=== PATIENT | male | born 1955 | race Caucasian/White ===

== ENCOUNTER → 2016-12-06 | Outpatient (CLI) | payer OTHER ==
[2016-12-06 09:02] LABS: ALT 58 U/L (21-72); AST 51 U/L (17-59); Cholesterol 240 mg/dL (<200); Creatine Kinase 346 U/L (55-170); HDL Cholesterol 56 mg/dL (40-60); Triglycerides 135 mg/dL (<150)
== END | disposition home or self-care (01) ==
LOC: LABWHC1 08:02
PROVIDERS: ATTEND Internal Medicine Interventional Cardiology
DX: I25.10 Atherosclerotic heart disease of native coronary artery without angina pectoris (principal); E78.5 Hyperlipidemia, unspecified
CPT/HCPCS: 36415; 80061; 82550; 84450; 84460

== ENCOUNTER → 2017-01-17 | Outpatient (CLI) | payer OTHER ==
[2017-01-17 08:47] LABS: ALT 40 U/L (21-72); AST 38 U/L (17-59); Cholesterol 166 mg/dL (<200); Creatine Kinase 463 U/L (55-170); HDL Cholesterol 54 mg/dL (40-60); Triglycerides 65 mg/dL (<150)
== END | disposition home or self-care (01) ==
LOC: LABWHC1 06:33
PROVIDERS: ATTEND Internal Medicine Interventional Cardiology
DX: E78.5 Hyperlipidemia, unspecified (principal); I25.10 Atherosclerotic heart disease of native coronary artery without angina pectoris
CPT/HCPCS: 36415; 80061; 82550; 84450; 84460

== ENCOUNTER → 2017-11-24 | Outpatient (CLI) | payer OTHER ==
--- NOTE | 2017-11-24 17:01 | CTL ---
EXAMINATION TYPE: CT Low Dose Lung DATE OF EXAM ORDERED: 11/24/2017 HISTORY: Long-term tobacco use. Lung cancer screening CT DLP: 80.[address] CTDI: 2.2 mGy Automated exposure control for dose reduction was used. SCREENING VISIT: Initial study COMPARISON: Outside chest x-ray November 08, 2016 TECHNIQUE: Low dose computed tomography scan was performed through the chest at 1 mm thick sections a nd reconstructed images in the coronal plane at [address] DIAGNOSTIC QUALITY: Satisfactory FINDINGS: LUNG NODULES: None. For reference 2 mm nodule anterior right upper lobe axial image 29. No suspicious greater than 5 mm n odules identified LUNGS: COPD: Minimal Fibrosis: Severity: Minimal biapical Lymph nodes: None Other findings: None BILATERAL PLEURAL SPACE: Effusion: None Calcification: Moderate calcified plaques right lung base over diaphragm raises concern for asbestosi s exposure or prior trauma. Thickening: None Pneumothorax: None HEART: Heart Size: Normal Coronary calcification: Mild to moderate. Suspect coronary stent in proximal LAD, correlate clinicall y Pericardial effusion: None Calcification left ventricular apex could reflect product of old infarct. Correlate clinically. OTHER FINDINGS: Upper abdomen: No suspicious findings seen. Bony thorax: Moderate multilevel spurring most prominent lower thoracic spine is noted Supraclavicular region: No suspicious findings. Other: No suspicious findings. IMPRESSION: No suspicious nodules identified. Stable calcified plaque right lung base. Possible old l eft ventricular infarct at apex. Correlate clinically. FOLLOW UP CT CHEST RECOMMENDATION: Annual low-dose lung screening CT CT LUNG RAD: Lung-Rad 2 Benign Appearance or Behavior
== END | disposition home or self-care (01) ==
LOC: RADCTMAIN 16:20
PROVIDERS: ATTEND Internal Medicine Critical Care Medicine
DX: Z12.2 Encounter for screening for malignant neoplasm of respiratory organs (principal); J92.9 Pleural plaque without asbestos; Z87.891 Personal history of nicotine dependence

== ENCOUNTER → 2017-12-25 | Outpatient (CLI) | payer OTHER ==
--- NOTE | 2017-12-26 07:42 | US ---
EXAMINATION TYPE: US prostate transrectal DATE OF EXAM: 12/25/2017 COMPARISON: CT abdomen and pelvis dated October 08, 2011 CLINICAL HISTORY: R97.20 Elevated PSA. This examination was performed using the transrectal probe. EXAM MEASUREMENTS: Gland Size: 5.0 x 3.1 x 4.8 cm Volume: 39.1 Predicted PSA: 4.7 Actual PSA (if available):4.8 Seminal vesicles are felt within normal limits on initial images. Prostate gland is enlarged in size with central zone calcifications. No suspicious hypoechoic nodules are identified. IMPRESSION: Prostate gland is slightly enlarged without suspicious nodule. Findings are consistent w ith BPH and correlate with lab PSA value.
== END | disposition home or self-care (01) ==
LOC: RADUSMAIN 08:55
PROVIDERS: ATTEND Family Medicine
DX: N40.0 Benign prostatic hyperplasia without lower urinary tract symptoms (principal)
CPT/HCPCS: 76872

== ENCOUNTER → 2018-01-14 | Day surgery (SDC) | payer OTHER ==
[2018-01-09 14:54] VITALS: BMI 23.7
[~2018-01-14] MED LIST: LACTATED RINGERS 1,000 ML IV SCH; LIDOCAINE 1% 20 ML VIAL (10MG/ML) FOR IV START INTRADERMA PRN; PROPOFOL 10 MG/ML 20 ML VIAL IV ONE
[2018-01-14 12:12] VITALS: TEMP 97.4
--- NOTE | 2018-01-14 12:46 | P.PCN ---
Date of Procedure: 01/14/18 Procedure(s) Performed: BRIEF HISTORY: Patient is a 62-year-old pleasant white male, scheduled for an elective colonoscopy as a part of screening for colorectal neoplasia. He has family history of colon cancer diagnosed in his dad at age 70. PROCEDURE PERFORMED: Colonoscopy with biopsy. PREOPERATIVE DIAGNOSIS: Screening for colon cancer/family history of colon cancer. IV sedation per Anesthesia. PROCEDURE: After informed consent was obtained, the patient, was brought into the endoscopy unit. IV sedation was administered by Anesthesia under continuous monitoring. Digital rectal examination was normal. Initially the Olympus CF- 160 flexible video colonoscope was then inserted in the rectum, gradually advanced into the cecum without any difficulty. Careful examination was performed as the scope was gradually being withdrawn. Ileocecal valve and the appendiceal orifice were visualized and appeared normal. Prep was excellent. Mucosa of the cecum, ascending colon, transverse colon, descending colon, sigmoid colon, and rectum appeared normal. His a 5 mm polyp noted in the sigmoid colon that was removed by biopsy. Retroflexion was performed in the rectum and no lesions were seen. The patient tolerated the procedure well. IMPRESSION: 5 mm sigmoid colon polyp status post removal by biopsy. Rest of the colon appeared normal RECOMMENDATIONS: Findings of this examination were discussed with the patient as well as his family. He was advised to follow with the biopsy doesn't have a repeat colonoscopy in 5 years
[2018-01-14 13:11] VITALS: BP 119/79; PULSE 66; RESP 18
== END ==
LOC: ORWHC2ENDO 11:12
PROVIDERS: ATTEND Internal Medicine Gastroenterology
DX: Z12.11 Encounter for screening for malignant neoplasm of colon (principal); K63.5 Polyp of colon; Z80.0 Family history of malignant neoplasm of digestive organs; I10 Essential (primary) hypertension; E78.5 Hyperlipidemia, unspecified; F17.200 Nicotine dependence, unspecified, uncomplicated; Z79.82 Long term (current) use of aspirin; Z79.899 Other long term (current) drug therapy
CPT/HCPCS: 88305; 45380; J2704

== ENCOUNTER → 2018-06-29 | Outpatient (CLI) | payer OTHER | LOC: LABWHC1 12:52 | PROVIDERS: ATTEND Urology | DX: C61 Malignant neoplasm of prostate (principal) | CPT/HCPCS: 36415; 84153 ==

== ENCOUNTER → 2018-09-08 | Outpatient (CLI) | payer OTHER ==
--- NOTE | 2018-09-09 04:39 | MR ---
EXAMINATION TYPE: MR lspine/sacrum wo con DATE OF EXAM: 09/08/2018 COMPARISON: 09/16/1711 HISTORY: Low back pain TECHNIQUE: Multiplanar, multisequence imaging of the lumbar spine is performed without IV contrast. FINDINGS: There is mild thoracolumbar levoscoliosis. There is degenerative disc space narrowing throu ghout the lumbar spine with decreased signal in the disks. There is multilevel posterior disc herniat ion and endplate spur formation. There is a mild lateral recess stenosis and relative spinal stenosis at L3-4 due to facet arthropathy and posterior disc bulging. There is no compression fracture. I see no focal bone destruction. The sacroiliac joints appear intact. The sacrum appears intact. Prostate is enlarged and measures 5.7 cm in diameter. There is no free fluid in the pelvis. Sacral segments boyle ve normal alignment. Coccyx appears intact. IMPRESSION: Multilevel spondylotic changes and mild levoscoliosis. Mild relative spinal stenosis at L3-4. No frac ture. Negative sacrum and coccyx exam. Enlarged prostate. There is moderate anterior hypertrophic spurring and lumbar disc herniation at L3-4 L1-2.
== END | disposition home or self-care (01) ==
LOC: RADMRIMAIN 18:41
PROVIDERS: ATTEND Family Medicine
DX: M48.061 Spinal stenosis, lumbar region without neurogenic claudication (principal); M51.16 Intervertebral disc disorders with radiculopathy, lumbar region; M47.817 Spondylosis without myelopathy or radiculopathy, lumbosacral region; M41.87 Other forms of scoliosis, lumbosacral region
CPT/HCPCS: 72148; 72195

== ENCOUNTER → 2018-12-25 | Outpatient (CLI) | payer OTHER | END | disposition home or self-care (01) | LOC: LABWHC1 12:20 | PROVIDERS: ATTEND Urology | DX: C61 Malignant neoplasm of prostate (principal) | CPT/HCPCS: 36415; 84153 ==

== ENCOUNTER → 2019-03-31 | Outpatient (CLI) | payer OTHER ==
--- NOTE | 2019-04-05 07:12 | MR ---
EXAMINATION TYPE: MR Prostate wo/w con DATE OF EXAM: 03/31/2019 COMPARISON: Prostate ultrasound December 25, 2017 IMAGE QUALITY: Good. INDICATION: Prostate ca PSA: 4.8 ng/ml in 2018 decreased to 3.8 on December 25, 2018. Recent Biopsy and Date: March 24, 2018 left apex medial Drifton grade 3+3, 25% of tissue measuring 5 mm in length and left lateral apex Leisa grade 3+3 approximately 10% of tissue measuring 2 mm in l ength. TECHNIQUE: Examination was performed using a 3T MRI without an endorectal coil. Multiparametric imaging was perf ormed with T2 mutliplanar sequences, axial diffusion weighted imaging and dynamic contrast enhanced i maging, utilizing 7.5 mL intravenous Gadavist gadolinium contrast. FINDINGS: There is no clinically significant cancer identified. PROSTATE VOLUME: 5.0 cm SI x 3.6 cm AP x 4.7 cm LR Vol= 41.9 cc PSA DENSITY: 5.028 ng/ml/cc Peripheral zone shows no areas of indistinct hypointensity on ADC mapping or suspicious areas of hype rintensity on diffusion-weighted images. Transitional zone shows heterogeneity and hypertrophy with circumscribed hypointense right-sided 1.6 cm nodule axial image 17. No areas of suspicious irregular hypointense masses are identified. Capsule is maintained. Seminal vesicles are felt within normal limits. No adjacent adenopathy identif ied. Bladder felt within normal limits, bladder wall thickness upper limits of normal. Visualized bowel is unremarkable. Adjacent osseous structures are intact. IMPRESSION: A focus of clinically significant cancer is not identified. Highest Assessment Category: 2 MRI Stage: T 1c N0 M0 based on review of pelvic images. False negative rates for MRI range from 5-20% depending on risk profile. Assessment Categories: 1 ? Very low (clinically significant cancer is highly unlikely to be present) 2 ? Low (clinically significant cancer is unlikely to be present) 3 ? Intermediate (the presence of clinically significant cancer is equivocal) 4 ? High (clinically significant cancer is likely to be present) 5 ? Very high (clinically significant cancer is highly likely to be present) Locations: PZ = peripheral zone; TZ = transition zone CZ=central zone; AFS = anterior fibromuscular stroma a=anterior half (i.e. PZa=anterior half of peripheral zone); pm= posterior medial (i.e PZpm) pl = postero-lateral (i.e. PZpl); p = posterior half (i.e. TZp) ; a = anterior half (i.e TZa or P Za) Other: N=no or no; E= equivocal; Y=yes EPE = extraprostatic extension NVB = neurovascular bundle NA = not applicable/not available
== END | disposition home or self-care (01) ==
LOC: RADMRIMAIN 10:14
PROVIDERS: ATTEND Urology
DX: C61 Malignant neoplasm of prostate (principal)
CPT/HCPCS: 72197; A9585

== ENCOUNTER → 2019-05-04 | Outpatient (CLI) | payer OTHER ==
--- NOTE | 2019-05-05 05:01 | CT ---
EXAMINATION TYPE: CT abdomen pelvis wo con DATE OF EXAM: 05/04/2019 COMPARISON: 10/08/2011 HISTORY: 63-year-old male Hematuria and UTI. CT DLP: 277.9 mGycm. Automated exposure control for dose reduction was used. TECHNIQUE: Contiguous axial scanning of the abdomen and pelvis without IV contrast. Coronal and sagit margaret reconstructions performed. FINDINGS: Heart normal size without pericardial effusion. Lung bases clear without pleural effusion. Stable ple ural-based calcification along the right hemidiaphragm could reflect prior infectious/inflammatory se quela or asbestos exposure. Noncontrast appearance of the liver, gallbladder, adrenal glands, spleen, and pancreas show no gross abnormality. Kidneys show no nephrolithiasis or hydronephrosis. There is a 1.5 cm indeterminate round lesion from the medial aspect of the mid to lower pole of the r ight kidney. The tiny 4 mm cortical hypodensity seems to have been present in 2011. This suggests a c ortical cyst that is slightly enlarged in the interval. The lack of IV contrast limits evaluation. No dilated small bowel, free fluid, or free air. Normal appendix. No mesenteric or retroperitoneal ly mphadenopathy. Mild to moderate atherosclerotic calcifications infrarenal abdominal aorta and iliac arteries. Moderate stool in the right side of the colon. No pericolonic inflammatory change. Bladder urine distended but with eccentric wall thickening along the inferior left lateral bladder wa ll measuring up to 1 cm thick, refer to axial image 109. Prostate gland enlarged at 5.6 cm wide. No a bnormal fluid collection in the pelvis or pelvic lymphadenopathy. Bones: Mild degenerative changes of the hips. Multilevel advanced degenerative disc disease and facet arthropathy throughout the lumbar spine with multilevel grade 1 spondylolisthesis. IMPRESSION: 1. A 1.5 cm indeterminate lesion along the medial mid to lower pole of the right kidney suspected to represent a cyst that has enlarged from 2011. Consider 6 month follow-up to ensure stability. 2. No nephrolithiasis or hydronephrosis. 3. Eccentric wall thickening of the lower left lateral bladder wall up to 1 cm. Urothelial neoplasm should be excluded. 4. Prostatomegaly (5.6 cm wide). 5. Multilevel advanced spondylotic change throughout the lumbar spine.
== END | disposition home or self-care (01) ==
LOC: RADCTMAIN 12:37
PROVIDERS: ATTEND Nurse Practitioner Adult Health
DX: N40.0 Benign prostatic hyperplasia without lower urinary tract symptoms (principal); N32.89 Other specified disorders of bladder
CPT/HCPCS: 74176

== ENCOUNTER → 2019-05-05 | Outpatient (CLI) | payer OTHER ==
[2019-05-05 08:52] LABS: Basophils # (A) 0.1 k/uL (0-0.2); Basophils % (A) 1 %; Eosinophils # (A) 0.2 k/uL (0-0.7); Eosinophils % (A) 2 %; HCT 42.2 % (39.0-53.0); HGB 14.1 gm/dL (13.0-17.5); Lymphocytes # (A) 2.3 k/uL (1.0-4.8); Lymphocytes % (A) 26 %; MCH 31.2 pg (25.0-35.0); MCHC 33.5 g/dL (31.0-37.0); MCV 93.1 fL (80.0-100.0); Mean Platelet Volume 5.8; Monocytes # (A) 0.6 k/uL (0-1.0); Monocytes % (A) 7 %; Neutrophils # (A) 5.4 k/uL (1.3-7.7); Neutrophils % (A) 62 %; Platelet Count 382 k/uL (150-450); RBC 4.53 m/uL (4.30-5.90); RDW 13.2 % (11.5-15.5); WBC 8.8 k/uL (3.8-10.6)
[2019-05-05 16:49] LABS: Albumin 4.2 g/dL (3.80-4.90); Albumin/Globulin Ratio 2.33 (1.60-3.17); Anion Gap 10.5 mmol/L (4.00-12.00); Calcium 9.2 mg/dL (8.7-10.3); Carbon Dioxide 26.5 mmol/L (21.6-31.8); Chol/HDL Ratio 3.21; Globulin 1.8 g/dL (1.6-3.3); LDL Cholesterol,Calculated 59.8 mg/dL (0.0-131.0); Potassium 4.7 mmol/L (3.5-5.5); Total Bilirubin 1.7 mg/dL (0.2-1.2); VLDL Calculation 15.2 mg/dL (5.00-40.00)
[2019-05-05 16:56] LABS: T4, Free (Free Thyroxine) 1.3 ng/dL (0.80-1.80)
[2019-05-05 19:25] LABS: Hemoglobin A1C 6.1 % (4.0-6.0)
== END ==
LOC: LABWHC1 08:12
PROVIDERS: ATTEND Nurse Practitioner Adult Health
DX: I25.10 Atherosclerotic heart disease of native coronary artery without angina pectoris (principal); E78.5 Hyperlipidemia, unspecified; I10 Essential (primary) hypertension
CPT/HCPCS: 36415; 80053; 80061; 82550; 83036; 84439; 84443; 85025

== ENCOUNTER → 2019-07-01 | Outpatient (CLI) | payer OTHER | END | disposition home or self-care (01) | LOC: LABWHC1 07:20 | PROVIDERS: ATTEND Urology | DX: C61 Malignant neoplasm of prostate (principal) | CPT/HCPCS: 36415; 84153 ==

== ENCOUNTER → 2019-11-22 | Outpatient (CLI) | payer OTHER ==
[2019-11-22 15:45] LABS: Chol/HDL Ratio 3.17; LDL Cholesterol,Calculated 80.8 mg/dL (0.0-131.0); VLDL Calculation 19.2 mg/dL (5.00-40.00)
== END | disposition home or self-care (01) ==
LOC: LABWHC1 08:35
PROVIDERS: ATTEND Internal Medicine Interventional Cardiology
DX: E78.5 Hyperlipidemia, unspecified (principal); I25.10 Atherosclerotic heart disease of native coronary artery without angina pectoris
CPT/HCPCS: 36415; 80061; 82550; 84450; 84460

== ENCOUNTER → 2019-12-30 | Outpatient (CLI) | payer OTHER | END | disposition home or self-care (01) | LOC: LABWHC1 08:27 | PROVIDERS: ATTEND Urology | DX: C61 Malignant neoplasm of prostate (principal) | CPT/HCPCS: 36415; 84153 ==

== ENCOUNTER → 2020-01-19 | Outpatient (CLI) | payer OTHER ==
--- NOTE | 2020-01-19 13:18 | CT ---
EXAMINATION TYPE: CT abdomen wo/w con DATE OF EXAM: 01/19/2020 COMPARISON: May 04, 2019 HISTORY: follow up right side renal lesion CT DLP: 583.5 mGycm Automated exposure control for dose reduction was used. TECHNIQUE: Helical acquisition of images was performed from the lung bases through the top of iliac crest to include entire abdomen. CONTRAST: Performed with Oral Contrast and without and with IV Contrast, patient injected with 100 mL of Isovue 300. FINDINGS: LUNG BASES: Pleural-based calcifications right lung base. LIVER/GB: No significant abnormality is appreciated. PANCREAS: No significant abnormality is seen. SPLEEN: No significant abnormality is seen. ADRENALS: No significant abnormality is seen. KIDNEYS: Simple appearing cyst lower pole right kidney measuring 1.5 cm with Hounsfield unit measurem ent of the lobe 20. No solid lesions are detected. No hydronephrosis or nephrolithiasis. Bladder unremarkable. BOWEL: No significant abnormality is seen. LYMPH NODES: No significant abnormality is seen. OSSEOUS STRUCTURES: No significant abnormality is seen. FREE AIR: No free air is visualized. OTHER: None IMPRESSION: SIMPLE CYST LOWER POLE RIGHT KIDNEY. NO EVIDENCE FOR SOLID RENAL LESION.
== END | disposition home or self-care (01) ==
LOC: RADCTMAIN 11:42
PROVIDERS: ATTEND Urology
DX: N28.1 Cyst of kidney, acquired (principal); D41.01 Neoplasm of uncertain behavior of right kidney
CPT/HCPCS: 74170; Q9967

== ENCOUNTER → 2020-10-05 | Outpatient (CLI) | payer OTHER | END | disposition home or self-care (01) | LOC: LABWHC1 08:00 | PROVIDERS: ATTEND Urology | DX: C61 Malignant neoplasm of prostate (principal) | CPT/HCPCS: 36415; 84153 ==

== ENCOUNTER → 2020-12-22 | Outpatient (CLI) | payer OTHER | END | disposition home or self-care (01) | LOC: LABWHC1 08:01 | PROVIDERS: ATTEND Urology | DX: C61 Malignant neoplasm of prostate (principal) | CPT/HCPCS: 36415; 84153 ==

== ENCOUNTER → 2021-08-13 | Outpatient (CLI) | payer OTHER ==
--- NOTE | 2021-08-14 11:40 | CT ---
EXAMINATION TYPE: CT abdomen pelvis w con DATE OF EXAM: 08/13/2021 COMPARISON: 01/19/2020 HISTORY: Pt states hx bladder ca. Isovue 300/[address] ml[address] DLP: 604.10 mGycm Automated exposure control for dose reduction was used. CONTRAST: CT scan of the abdomen pelvis is performed with IV Contrast, patient injected with 100 mL of Isovue 3 00. FINDINGS- LUNG BASES- No significant abnormality is appreciated. LIVER/GB- No gross abnormality is appreciated. PANCREAS- No gross abnormality is seen. SPLEEN- No gross abnormality is seen. ADRENALS- No gross abnormality is seen. KIDNEYS/BLADDER- no hydronephrosis or nephrolithiasis. There is a simple appearing cyst extending off the posterior lower pole the right kidney measuring 10 Hounsfield units and 1.5 cm.. BOWEL-nonspecific bowel gas pattern without obstruction. Small hiatal hernia. Appendix normal.. LYMPH NODES- No greater than 1cm abdominal or pelvic lymph nodes areappreciated. OSSEOUS STRUCTURES-severe multilevel hypertrophic and degenerative changes of the spine. No destructi ve changes.. OTHER- mild circumferential wall thickening of the bladder. The prostate appears be enlarged and dem onstrates heterogeneous enhancement. Atherosclerotic change of vasculature. No evidence of aneurysm stable nonspecific calcifications mana g the diaphragmatic surface of the right hemidiaphragm IMPRESSION- 1. Mild concentric wall thickening of the bladder can be associated with mild chronic cystitis. Bladd er mass is seen. 2. There does appear to be a heterogeneously enhancing enlarged prostate gland. Correlation with PSA is recommended.
== END | disposition home or self-care (01) ==
LOC: RADCTMAIN 17:12
PROVIDERS: ATTEND Urology
DX: C67.9 Malignant neoplasm of bladder, unspecified (principal)
CPT/HCPCS: 74177; Q9967

== ENCOUNTER → 2022-02-12 | Outpatient (CLI) | payer MEDICARE, OTHER ==
--- NOTE | 2022-02-12 17:03 | CTL ---
EXAMINATION TYPE: CT Low Dose Lung DATE OF EXAM ORDERED: 02/12/2022 HISTORY: History of tobacco use. Lung cancer screening CT DLP: 96.[address] CTDI: 2.6 mGy Automated exposure control for dose reduction was used. SCREENING VISIT: Follow-up COMPARISON: 11/24/2017 TECHNIQUE: Low dose computed tomography scan was performed through the chest at 1 mm thick sections a nd reconstructed images in multiple planes at 1 mm and [address] DIAGNOSTIC QUALITY: Satisfactory FINDINGS: LUNG NODULES: No new or enlarging pulmonary nodules. LUNGS: COPD: Severity: Minimal Fibrosis: Severity: Minimal biapical Lymph nodes: None Other findings: None RIGHT PLEURAL SPACE: Effusion: None Calcification: Unchanged moderate calcified pleural plaques in the right lung base over diaphragm granados ses concern for asbestosis exposure or prior trauma. Thickening: None Pneumothorax: None LEFT PLEURAL SPACE: Effusion: None Calcification: None Thickening: Moderate, suspected coronary stent in the proximal LAD. Pneumothorax: None HEART: Heart Size: Normal, calcification left ventricular apex could reflect again product of old infarct. Coronary Calcification: None Pericardial Effusion: None OTHER FINDINGS: Upper abdomen: None Bony thorax: Degenerative changes of visualized spine. Supraclavicular region: None Other: None IMPRESSION: No new or enlarging pulmonary nodules. Stable calcified right lung base pleural plaque. CT LUNG RAD AND CT CHEST RECOMMENDATION: Lung-Rad 2 Benign Appearance or Behavior: Continue annual sc reening with LDCT in 12 months.
== END | disposition home or self-care (01) ==
LOC: RADCTMAIN 16:06
PROVIDERS: ATTEND Internal Medicine Critical Care Medicine
DX: Z12.2 Encounter for screening for malignant neoplasm of respiratory organs (principal); Z87.891 Personal history of nicotine dependence
CPT/HCPCS: 71271

== ENCOUNTER → 2022-11-18 | Outpatient (CLI) | payer MEDICARE | END | disposition home or self-care (01) | LOC: LABWHC1 08:11 | PROVIDERS: ATTEND Urology | DX: C61 Malignant neoplasm of prostate (principal) | CPT/HCPCS: 36415; 84153 ==

== ENCOUNTER → 2023-01-22 | Outpatient (CLI) | payer MEDICARE ==
--- NOTE | 2023-01-22 07:53 | CTL ---
EXAMINATION TYPE: CT Low Dose Lung DATE OF EXAM ORDERED: 01/22/2023 HISTORY: Z12.2 Z87.891 . Lung cancer screening CT DLP: 109.[address] CTDI: 2.9 mGy Automated exposure control for dose reduction was used. SCREENING VISIT: Follow-up COMPARISON: CT low-dose lung cancer screening 02/12/2022, 11/24/2017 TECHNIQUE: Low dose computed tomography scan was performed through the chest at 1 mm thick sections a nd reconstructed images in multiple planes at 1 mm and [address] DIAGNOSTIC QUALITY: Satisfactory FINDINGS: LUNG NODULES: Stable 2 mm nodule anterior right upper lobe. No new or enlarging clinically significan t pulmonary nodules. LUNGS: COPD: Severity: Minimal Fibrosis: Severity: Minimal biapical Lymph nodes: None Other findings: None RIGHT PLEURAL SPACE: Effusion: None Calcification: Unchanged moderate calcified pleural plaques in the right lung base over diaphragm granados ses concern for asbestosis exposure or prior trauma. Thickening: None Pneumothorax: None LEFT PLEURAL SPACE: Effusion: None Calcification: None Thickening: Moderate, suspected coronary stent in the proximal LAD. Pneumothorax: None HEART: Heart Size: Normal, calcification left ventricular apex could reflect again product of old inf arct. Coronary Calcification: None Pericardial Effusion: None OTHER FINDINGS: Upper abdomen: None Bony thorax: Degenerative changes of visualized spine. Supraclavicular region: None Other: None IMPRESSION: No new or enlarging clinically significant pulmonary nodules. Stable calcified right lung base pleura l plaque. CT LUNG RAD AND CT CHEST RECOMMENDATION: Lung-Rad 2 Benign Appearance or Behavior: Continue annual sc reening with LDCT in 12 months.
== END | disposition home or self-care (01) ==
LOC: RADCTMAIN 05:57
PROVIDERS: ATTEND Internal Medicine Critical Care Medicine
DX: Z12.2 Encounter for screening for malignant neoplasm of respiratory organs (principal); F17.210 Nicotine dependence, cigarettes, uncomplicated; J92.9 Pleural plaque without asbestos
CPT/HCPCS: 71271

== ENCOUNTER → 2023-05-28 | Outpatient (CLI) | payer MEDICARE | END | disposition home or self-care (01) | LOC: LABWHC1 08:02 | PROVIDERS: ATTEND Urology | DX: C61 Malignant neoplasm of prostate (principal) | CPT/HCPCS: 36415; 84153 ==

== ENCOUNTER → 2023-06-18 | Outpatient (CLI) | payer MEDICARE ==
[2023-06-18 13:36] LABS: African American GFR (CKD) >90 (>60 ml/min/1.73 sqM); Blood Urea Nitrogen 14 mg/dL (9-20); Non-African American GFR(CKD) >90 (>60 ml/min/1.73 sqM)
--- NOTE | 2023-06-20 09:19 | CT ---
EXAMINATION TYPE: CT abdomen pelvis w con CT DLP: 1211 mGycm, Automated exposure control for dose reduction was used. DATE OF EXAM: 06/18/2023 3:13 PM COMPARISON: CT abdomen pelvis most recent from 08/13/2021. CLINICAL INDICATION:Male, 67 years old with history of C67.9 BLADDER CA; Bladder ca TECHNIQUE: Axial CT of the ;CT abdomen pelvis w con;Sagittal and coronal reformats were created on a separate workstation. Contrast used:100 mL of Isovue 300 with IV Contrast, (none if empty) Oral contrast used: with Oral Contrast (none if empty) FINDINGS: LOWER CHEST: Calcified plaquing along the diaphragm on the right. ABDOMEN LIVER: Diffusely hypoattenuating parenchyma. GALLBLADDER AND BILE DUCTS: Unremarkable. PANCREAS: Unremarkable. SPLEEN: Unremarkable. ADRENAL GLANDS: Unremarkable. KIDNEYS AND URETERS: No evidence of hydronephrosis or renal calculus. The ureters are unremarkable. Simple appearing right renal cyst. PELVIS BLADDER: The bladder wall appears relatively symmetric without evidence of focal wall thickening. Del ayed imaging did not extend to the level of complete bladder. REPRODUCTIVE: The prostate gland is prominent with median lobe hypertrophy changes. ABDOMEN & PELVIS STOMACH AND BOWEL: No evidence of bowel obstruction. PERITONEUM/RETROPERITONEUM: No evidence of pneumoperitoneum or free fluid. VASCULATURE: No evidence of aortic aneurysm. MUSCULOSKELETAL: No acute osseous abnormalities LYMPH NODES: No gross evidence for lymphadenopathy. SOFT TISSUE/ABDOMINAL WALL: Unremarkable IMPRESSION: 1. No evidence for urinary bladder wall thickening on this limited evaluation without excreted contr ast within the bladder lumen. No lymphadenopathy visualized in the abdomen or pelvis. 2. Calcified pleural plaque along the right diaphragm correlate for history of asbestos exposure.
== END | disposition home or self-care (01) ==
LOC: RADCTMAIN 12:54
PROVIDERS: ATTEND Urology
DX: C67.9 Malignant neoplasm of bladder, unspecified (principal); J92.9 Pleural plaque without asbestos
CPT/HCPCS: 82565; 84520; 74177; 36415; Q9967

== ENCOUNTER → 2023-11-26 | Outpatient (CLI) | payer MEDICARE | END | disposition home or self-care (01) | LOC: LABWHC1 06:59 | PROVIDERS: ATTEND Urology | DX: C61 Malignant neoplasm of prostate (principal) | CPT/HCPCS: 36415; 84153 ==

== ENCOUNTER → 2024-01-26 | Outpatient (CLI) | payer MEDICARE ==
--- NOTE | 2024-01-26 08:21 | CTL ---
EXAMINATION TYPE: CT Low Dose Lung DATE OF EXAM ORDERED: 01/26/2024 HISTORY: 68-year-old male Z87.891 personal hx tobacco use., Former smoker with 40 pack-year history. Lung cancer screening CT DLP: 98.[address] CTDI: 2.4 mGy Automated exposure control for dose reduction was used. SCREENING VISIT: Annual follow-up COMPARISON: 01/14/2023 TECHNIQUE: Low dose computed tomography scan was performed through the chest at 1 mm thick sections a nd reconstructed images in multiple planes at 1 mm and [address] DIAGNOSTIC QUALITY: Satisfactory FINDINGS: Heart is normal size without pericardial effusion. 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 LAD coronary artery stent noted. Mild atherosclerotic arch calcifications with conventional arch vessel branching anatomy. No thoracic lymphadenopathy by CT size criteria. Dense calcifications overlying the right hemidiaphragm suggests sequela prior inflammatory etiology. Some strandy atelectasis in the lower lungs. Mild diffuse bronchial wall thickening. Mild emphysemato us change. No consolidation or pleural effusion. No suspicious pulmonary nodules are seen. Visualized upper abdomen shows partially visualized 2.2 cm cyst posterior right kidney. Bones: Moderate degenerative disc disease lower thoracic spine with accentuated lower thoracic kyphos is. IMPRESSION: 1. LungRADS 2, benign; stable pleural calcification overlying the right hemidiaphragm. No suspicious pulmonary nodules. 2. COPD with mild emphysema. 3. Previous LAD coronary artery stent. Suspect previous 1.9 cm area of apical infarction and small ve ntricular wall aneurysm, unchanged from prior. CT LUNG RAD AND CT CHEST RECOMMENDATION: Lung-Rad 2 Benign Appearance or Behavior: Continue annual sc reening with LDCT in 12 months. S Modifier (other clinically significant findings): None
== END | disposition home or self-care (01) ==
LOC: RADCTMAIN 06:40
PROVIDERS: ATTEND Internal Medicine Critical Care Medicine
DX: Z12.2 Encounter for screening for malignant neoplasm of respiratory organs (principal); J43.9 Emphysema, unspecified; Z95.5 Presence of coronary angioplasty implant and graft; J94.8 Other specified pleural conditions; J44.9 Chronic obstructive pulmonary disease, unspecified; Z87.891 Personal history of nicotine dependence
CPT/HCPCS: 71271

== ENCOUNTER → 2024-05-28 | Outpatient (CLI) | payer MEDICARE | END | disposition home or self-care (01) | LOC: LABWHC1 06:59 | PROVIDERS: ATTEND Family Medicine | DX: C61 Malignant neoplasm of prostate (principal) | CPT/HCPCS: 36415; 84153 ==

== ENCOUNTER → 2024-06-30 | Outpatient (CLI) | payer MEDICARE ==
--- NOTE | 2024-06-30 22:02 | MR ---
EXAMINATION TYPE: MR Prostate wo/w con DATE OF EXAM: 06/30/2024 9:22 AM COMPARISON: None. CLINICAL INDICATION: Male, 68 years old with history of C61 MALIGNANT NEOPLASM OF PROSTATE; Prostate cancer. TECHNIQUE: Multi-planar, multi-sequence imaging of the pelvis is performed prior to and following the uncomplicated administration of bolus intravenous gadolinium. IV Contrast: 7 mL Gadobutrol Interpretive Criteria: PI-RADS v2.1 SERUM PSA: 05-28-24 = 7.19 -08-20 = 7.86 SURGICAL PATHOLOGY: No data available. FINDINGS: Prostatic dimensions: 5.3 x 6.0 x 3.8 cm. Ellipsoid Volume:63.27 (PSA density=0.11 ng/mL/mL) CENTRAL GLAND (Central and Transition Zones/CZ+TZ): Multiple bilateral, heterogenous appearing hypertrophic stromal nodules, without suspicious lesion. M edian lobe hypertrophy with protrusion into the base of the bladder. (PI-RADS 2) PERIPHERAL ZONE (PZ): Bilateral linear, indistinct wedgelike areas of low ADC, and low T2 signal, No evidence of masslike a bnormality, or localized perfusional hypervascularity, to further suggest a focus of clinically signi ficant prostate cancer. (PI-RADS 2) SEMINAL VESICLES (SV): Symmetric and unremarkable. PERIPROSTATIC TISSUES: Unremarkable. LYMPH NODES: No enlarged pelvic lymph node. REMAINING PELVIS: Bladder wall is within normal limits given distention. No abnormal free or organized intrapelvic fluid collection. No pathologic bowel dilation or mural thickening. No hernia visualized OSSEOUS STRUCTURES: No suspicious osseous abnormality. IMPRESSION: 1. No specific features for high-risk prostate cancer. Maximum PI-RADS score: 2. 2. Moderate BPH, estimated gland volume 63.27 mL. 3. No suspicious osseous lesion. No lymphadenopathy. No evidence of prostate adenocarcinoma involving the periprostatic tissues. [facility], , 06/30/2024 10:00 PM
== END | disposition home or self-care (01) ==
LOC: RADMRIMAIN 08:00
PROVIDERS: ATTEND Urology
DX: C61 Malignant neoplasm of prostate (principal); N40.0 Benign prostatic hyperplasia without lower urinary tract symptoms
CPT/HCPCS: 72197; A9585

== ENCOUNTER → 2024-11-15 | Outpatient (CLI) | payer MEDICARE | END | disposition home or self-care (01) | LOC: LABWHC1 07:14 | PROVIDERS: ATTEND Urology | DX: C61 Malignant neoplasm of prostate (principal) | CPT/HCPCS: 36415; 84153 ==

== ENCOUNTER 2024-12-02 08:47 | Emergency (ER) | payer MEDICARE ==
[2024-12-02 09:03] LABS: Glucose,Whole Blood 105 mg/dL (70-110)
[2024-12-02] MEDS: SODIUM CHLORIDE 0.9% 1,000 ML IV STA (09:10)
[2024-12-02 09:23] LABS: Basophils # (A) 0.05 10*3/uL (0.00-0.10); Basophils % (A) 0.6 %; Eosinophils % (A) 1.2 %; HCT 40.5 % (39.6-50.0); HGB 14.2 g/dL (13.0-17.0); Lymphocytes # (A) 3.43 10*3/uL (0.90-5.00); Lymphocytes % (A) 42.1 %; MCH 31.1 pg (27.0-32.0); MCHC 35.1 g/dL (32.0-37.0); MCV 88.6 fL (80.0-97.0); Mean Platelet Volume 9.5 fL (9.5-12.2); Monocytes # (A) 1.02 10*3/uL (0.20-1.00); Monocytes % (A) 12.5 %; Neutrophils # (A) 3.44 10*3/uL (1.80-7.70); Neutrophils % (A) 42.3 %; Platelet Count 252 10*3/uL (140-440); RBC 4.57 10*6/uL (4.40-5.60); RDW 12.8 % (11.5-14.5); WBC 8.15 10*3/uL (4.50-10.00)
--- NOTE | 2024-12-02 09:31 | XR ---
EXAMINATION TYPE: XR chest 2V DATE OF EXAM: 12/02/2024 CLINICAL INDICATION: Male, 68 years old with history of syncope, TECHNIQUE: Frontal and lateral views of the chest are obtained. COMPARISON: None FINDINGS: Perhaps mild underlying emphysematous change. There is no focal air space opacity, pleural effusion, or pneumothorax seen. The cardiac silhouette size is mildly enlarged. Surgical change righ t humeral head from prior rotator cuff surgery is noted. IMPRESSION: Mild cardiomegaly without acute pulmonary process. [facility], , 12/02/2024 9:29 AM
[2024-12-02 09:40] LABS: Prothrombin Time 11.1 sec (10.0-12.5)
[2024-12-02 09:42] LABS: Partial Thromboplastin Time 20.8 sec (22.0-30.0)
[2024-12-02 09:51] LABS: ALT 22 U/L (4-49); AST 29 U/L (17-59); African American GFR (CKD) >90 (>60 ml/min/1.73 sqM); Albumin 4.2 g/dL (3.5-5.0); Alkaline Phosphatase 71 U/L (38-126); Anion Gap 7 mmol/L; Blood Urea Nitrogen 16 mg/dL (9-20); Calcium 9.7 mg/dL (8.4-10.2); Carbon Dioxide 24 mmol/L (22-30); Chloride 107 mmol/L (98-107); Glucose 109 mg/dL (74-99); Non-African American GFR(CKD) >90 (>60 ml/min/1.73 sqM); Potassium 4.2 mmol/L (3.5-5.1); Sodium 138 mmol/L (137-145); Total Protein 6.8 g/dL (6.3-8.2)
--- NOTE | 2024-12-02 10:49 | ED ---
General Adult HPI - General Chief complaint: Syncope Stated complaint: Syncope Time Seen by Provider: 12/02/24 08:50 Source: patient Mode of arrival: wheelchair - Related Data Home Medications Medication Instructions Recorded Confirmed Aspirin [Adult Low Dose Aspirin EC] 81 mg PO DAILY 01/09/18 01/09/18 Atorvastatin Calcium [Lipitor] 10 mg PO Q48H 01/09/18 01/14/18 Losartan Potassium [Cozaar] 25 mg PO DAILY 01/09/18 01/14/18 Vitamin D (Unknown Dose) 1 tab PO DAILY 01/09/18 atenoloL [Tenormin] 25 mg PO DAILY 01/09/18 01/14/18 Allergies Allergy/AdvReac Type Severity Reaction Status Date / Time No Known Allergies Allergy Verified 12/02/24 09:04 Review of Systems ROS Statement: Those systems with pertinent positive or pertinent negative responses have been documented in the HPI. ROS Other: All systems not noted in ROS Statement are negative. Past Medical History Past Medical History: Coronary Artery Disease (CAD), COPD, Hyperlipidemia, Hypertension, Myocardial Infarction (RI) Additional Past Medical History / Comment(s): RUPTURED DISC WITH BACK PAIN, FREQUENT URINATION -TO SEE UROLOGIST. Last Myocardial Infarction Date:: 2002 History of Any Multi-Drug Resistant Organisms: None Reported Past Surgical History: Heart Catheterization With Stent, Hernia Repair, Orthopedic Surgery Additional Past Surgical History / Comment(s): RIGHT INGUINAL HERNIA, UMBILICAL HERNIA, LEFT THUMB SURGERY, RIGHT SHOULDER. Past Anesthesia/Blood Transfusion Reactions: Previous Problems w/ Anesthesia Additional Past Anesthesia/Blood Transfusion Reaction / Comment(s): PROBLEMS URINATING AFTER HERNIA SURGERY. Date of Last Stent Placement:: 2002 Past Psychological History: No Psychological Hx Reported Smoking Status: Former smoker Past Alcohol Use History: None Reported Past Drug Use History: Cocaine, Marijuana - Past Family History Father Family Medical History: Cancer Additional Family Medical History / Comment(s): PROSTATE CANCER, HEART BYPASS. Course Vital Signs 12/02/24 12/02/24 08:48 10:14 Temperature 97.3 F L Pulse Rate 52 L 57 L Respiratory 18 20 Rate Blood Pressure 127/78 143/86 O2 Sat by Pulse 100 100 Oximetry Medical Decision Making - Medical Decision Making Was pt. sent in by a medical professional or institution (, PA, [facility], urgent care, hospital, or retirement...) When possible be specific @ -[No] Did you speak to anyone other than the patient for history (EMS, parent, family, police, friend...)? What history was obtained from this source @ -[No] Did you review nursing and triage notes (agree or disagree)? Why? @ -[I reviewed and agree with nursing and triage notes] Were old charts reviewed (outside hosp., previous admission, EMS record, old EKG, old radiological studies, urgent care reports/EKG's, retirement records)? Report findings @ -[No old charts were reviewed] Differential Diagnosis (chest pain, altered mental status, abdominal pain women, abdominal pain men, vaginal bleeding, weakness, fever, dyspnea, syncope, headache, dizziness, GI bleed, back pain, seizure, CVA, palpatations, mental health, musculoskeletal)? @ -[not applicable] EKG interpreted by me (3pts min.). @ -Completed at 850 demonstrates sinus bradycardia with a rate of 53. KY interval 164. QRS 117. QTc of 434. Biphasic T waves V2 V3. Inverted T waves 2, 3, aVF Completed at 851 continues to demonstrate sinus bradycardia with a rate of 50. KY interval 177. QRS 138. QTc of 431. No acute ST segment elevations. Biphasic T wave V1 through V4. X-rays interpreted by me (1pt min.). @ -[None done] CT interpreted by me (1pt min.). @ -[None done] U/S interpreted by me (1pt. min.). @ -[None done] What testing was considered but not performed or refused? (CT, X-rays, U/S, labs)? Why? @ -[None] What meds were considered but not given or refused? Why? @ -[None] Did you discuss the management of the patient with other professionals (professionals i.e. , PA, [facility], lab, RT, psych nurse, clinical social work aide, shirt hemmer, teacher, strike operations officer, rn field case manager)? Give summary @ -[No] Was smoking cessation discussed for >3mins.? @ -[No] Was critical care preformed (if so, how long)? @ -[No] Were there social determinants of health that impacted care today? How? (Homelessness, low income, unemployed, alcoholism, drug addiction, transportation, low edu. Level, literacy, decrease access to med. care, nursing home, rehab)? @ -[No] Was there de-escalation of care discussed even if they declined (Discuss DNR or withdrawal of care, Hospice)? DNR status @ -[No] What co-morbidities impacted this encounter? (DM, HTN, Smoking, COPD, CAD, Cancer, CVA, ARF, Chemo, Hep., AIDS, mental health diagnosis, sleep apnea, morbid obesity)? @ -[None] Was patient admitted / discharged? Hospital course, mention meds given and route, prescriptions, significant lab abnormalities, going to OR and other pertinent info. @ -[hospital course] Undiagnosed new problem with uncertain prognosis? @ -[No] Drug Therapy requiring intensive monitoring for toxicity (Heparin, Nitro, Insulin, Cardizem)? @ -[No] Were any procedures done? @ -[No] Diagnosis/symptom? @ -[default] Acute, or Chronic, or Acute on Chronic? @ -[default] Uncomplicated (without systemic symptoms) or Complicated (systemic symptoms)? @ -[default] Side effects of treatment? @ -[No] Exacerbation, Progression, or Severe Exacerbation? @ -[No] Poses a threat to life or bodily function? How? (Chest pain, USA, RI, pneumonia, PE, COPD, DKA, ARF, appy, cholecystitis, CVA, Diverticulitis, Homicidal, Suicidal, threat to staff... and all critical care pts) @ -[No] - Lab Data Result diagrams: 12/02/24 09:10 12/02/24 09:10 Lab Results 12/02/24 12/02/24 12/02/24 Range/Units 09:02 09:10 09:10 WBC 8.15 (4.50-10.00) 10*3/uL RBC 4.57 (4.40-5.60) 10*6/uL Hgb 14.2 (13.0-17.0) g/dL Hct 40.5 (39.6-50.0) % MCV 88.6 (80.0-97.0) fL MCH 31.1 (27.0-32.0) pg MCHC 35.1 (32.0-37.0) g/dL Plt Count 252 (140-440) 10*3/uL MPV 9.5 (9.5-12.2) fL Immature Gran % (Auto) 1.3 % Neutrophils % 42.3 % Lymphocytes % 42.1 % Monocytes % 12.5 % Eosinophils % 1.2 % Basophils % 0.6 % Immature Gran # 0.11 H (0.00-0.04) 10*3/uL Neutrophils # 3.44 (1.80-7.70) 10*3/uL Lymphocytes # 3.43 (0.90-5.00) 10*3/uL Monocytes # 1.02 H (0.20-1.00) 10*3/uL Eosinophils # 0.10 (0.04-0.35) 10*3/uL Basophils # 0.05 (0.00-0.10) 10*3/uL PT 11.1 (10.0-12.5) sec INR 1.0 (<1.2) APTT 20.8 L (22.0-30.0) sec Sodium (137-145) mmol/L Potassium (3.5-5.1) mmol/L Chloride (98-107) mmol/L Carbon Dioxide (22-30) mmol/L Anion Gap mmol/L BUN (9-20) mg/dL Creatinine (0.66-1.25) mg/dL Est GFR (CKD-EPI)AfAm (>60 ml/min/1.73 sqM) Est GFR (CKD-EPI)NonAf (>60 ml/min/1.73 sqM) Glucose (74-99) mg/dL POC Glucose (mg/dL) 105 (70-110) mg/dL POC Glu Fly Worker ID Kathleen Christiansen Calcium (8.4-10.2) mg/dL Total Bilirubin (0.2-1.3) mg/dL AST (17-59) U/L ALT (4-49) U/L Alkaline Phosphatase (38-126) U/L Troponin I (0.000-0.034) ng/mL Total Protein (6.3-8.2) g/dL Albumin (3.5-5.0) g/dL 12/02/24 12/02/24 12/02/24 Range/Units 09:10 09:10 11:39 WBC (4.50-10.00) 10*3/uL RBC (4.40-5.60) 10*6/uL Hgb (13.0-17.0) g/dL Hct (39.6-50.0) % MCV (80.0-97.0) fL MCH (27.0-32.0) pg MCHC (32.0-37.0) g/dL Plt Count (140-440) 10*3/uL MPV (9.5-12.2) fL Immature Gran % (Auto) % Neutrophils % % Lymphocytes % % Monocytes % % Eosinophils % % Basophils % % Immature Gran # (0.00-0.04) 10*3/uL Neutrophils # (1.80-7.70) 10*3/uL Lymphocytes # (0.90-5.00) 10*3/uL Monocytes # (0.20-1.00) 10*3/uL Eosinophils # (0.04-0.35) 10*3/uL Basophils # (0.00-0.10) 10*3/uL PT (10.0-12.5) sec INR (<1.2) APTT (22.0-30.0) sec Sodium 138 (137-145) mmol/L Potassium 4.2 (3.5-5.1) mmol/L Chloride 107 (98-107) mmol/L Carbon Dioxide 24 (22-30) mmol/L Anion Gap 7 mmol/L BUN 16 (9-20) mg/dL Creatinine 0.76 (0.66-1.25) mg/dL Est GFR (CKD-EPI)AfAm >90 (>60 ml/min/1.73 sqM) Est GFR (CKD-EPI)NonAf >90 (>60 ml/min/1.73 sqM) Glucose 109 H (74-99) mg/dL POC Glucose (mg/dL) (70-110) mg/dL POC Glu Fly Worker ID Calcium 9.7 (8.4-10.2) mg/dL Total Bilirubin 3.0 H (0.2-1.3) mg/dL AST 29 (17-59) U/L ALT 22 (4-49) U/L Alkaline Phosphatase 71 (38-126) U/L Troponin I <0.012 <0.012 (0.000-0.034) ng/mL Total Protein 6.8 (6.3-8.2) g/dL Albumin 4.2 (3.5-5.0) g/dL Disposition Clinical Impression: Syncope Disposition: HOME SELF-CARE Condition: Stable Instructions (If sedation given, give patient instructions): Syncope (ED) Additional Instructions: Please follow-up with your heart doctor at your scheduled appointment. Return to the emergency department for any new or worsening symptoms Is patient prescribed a controlled substance at d/c from ED?: No Referrals: Phyllis Franklin MD [Primary Care Provider] - 1-2 days Time of Disposition: 12:22
--- NOTE | 2024-12-02 11:40 | P.CRDCN ---
History of Present Illness Consult date: 12/02/24 Reason for Consult (text): Abnormal EKG History of present illness: This is a 68-year-old male patient of Dr. Mitchell with past medical history of ischemic cardiomyopathy with previous anterior SD in 2002, bladder cancer, prostate cancer under conservative management. Patient was previously under the care of Dr. Jay and recently transition to Dr. Mitchell due to shelter of Dr. Jay. We have been asked to evaluate the patient for abnormal EKG. Patient gives history that he was in the hospital for an MRI for his shoulder. He then underwent a CAT scan of the abdomen and pelvis to evaluate previous bladder or prostate cancer. Patient states he was talking to the staff about needles and how much he hated them and all of a sudden passed out. He states he became sweaty and clammy nauseated and he vomited a small amount. He is not sure if he completely lost consciousness. Patient was then brought to the emergency center for evaluation. He denies chest pain, chest pressure, chest tightness. -EKG: Sinus rhythm with bradycardia, left anterior fascicular block. This is similar to previous EKGs -Home cardiac medications: From office note: Aspirin 81 mg daily, atenolol 25 mg 2 tablets daily, Lipitor 20 mg daily, losartan 25 mg daily, nitroglycerin spray as needed. - Echocardiogram performed in the office on 05/06/2024 revealed EF of 40%, trace aortic regurgitation, mild to moderate mitral regurgitation, mild tricuspid regurgitation, PASP 28. Review Of Systems: At the time of my exam: CONSTITUTIONAL: Denies fever or chills. HEENT: Denies blurred vision, vision changes, or eye pain. Denies hemoptysis CARDIOVASCULAR: Denies chest pain. Denies orthopnea. Denies PND. Denies palpitations RESPIRATORY: Denies shortness of breath. GASTROINTESTINAL: Denies abdominal pain. Denies nausea or vomiting. HEMATOLOGIC: Denies bleeding disorders. GENITOURINARY: Denies any blood in urine. SKIN: Denies puritis. Denies rash. Physical examination: Gen: This is 68-year-old male in no acute distress VS: reviewed HEENT: Head is atraumatic, normocephalic. Pupils equal, round. Sclerae is anicteric. NECK: Supple. No JVD. LUNGS: Clear to auscultation. No wheezes or rhonchi. No intercostal retractions. HEART: Regular rate and rhythm. No murmur. ABDOMEN: Soft No tenderness. EXTREMITIES: No pedal edema. No calf tenderness. NEUROLOGICAL: Patient is awake, alert and oriented x3. Assessment: Syncope secondary to basal vagal response History of ischemic cardiomyopathy with EF 40% Previous SD in 2002 Bladder cancer Prostate cancer Plan: Resume patient's home cardiac medications Patient is cleared for discharge with no additional cardiac workup Patient to follow-up in the office with Dr. Mitchell regarding preop clearance for surgery. Thank you kindly for this consultation. Nurse practitioner note has been reviewed, I agree with documented findings and plan of care. Patient was seen and examined. Past Medical History Past Medical History: Coronary Artery Disease (CAD), COPD, Hyperlipidemia, Hypertension, Myocardial Infarction (SD) Additional Past Medical History / Comment(s): RUPTURED DISC WITH BACK PAIN, FREQUENT URINATION -TO SEE UROLOGIST. Last Myocardial Infarction Date:: 2002 History of Any Multi-Drug Resistant Organisms: None Reported Past Surgical History: Heart Catheterization With Stent, Hernia Repair, Orthopedic Surgery Additional Past Surgical History / Comment(s): RIGHT INGUINAL HERNIA, UMBILICAL HERNIA, LEFT THUMB SURGERY, RIGHT SHOULDER. Past Anesthesia/Blood Transfusion Reactions: Previous Problems w/ Anesthesia Additional Past Anesthesia/Blood Transfusion Reaction / Comment(s): PROBLEMS URINATING AFTER HERNIA SURGERY. Date of Last Stent Placement:: 2002 Past Psychological History: No Psychological Hx Reported Smoking Status: Former smoker Past Alcohol Use History: None Reported Past Drug Use History: Cocaine, Marijuana - Past Family History Father Family Medical History: Cancer Additional Family Medical History / Comment(s): PROSTATE CANCER, HEART BYPASS. Medications and Allergies Home Medications Medication Instructions Recorded Confirmed Type Aspirin [Adult Low Dose Aspirin EC] 81 mg PO DAILY 01/09/18 01/09/18 History Atorvastatin Calcium [Lipitor] 10 mg PO Q48H 01/09/18 01/14/18 History Losartan Potassium [Cozaar] 25 mg PO DAILY 01/09/18 01/14/18 History Vitamin D (Unknown Dose) 1 tab PO DAILY 01/09/18 History atenoloL [Tenormin] 25 mg PO DAILY 01/09/18 01/14/18 History Allergies Allergy/AdvReac Type Severity Reaction Status Date / Time No Known Allergies Allergy Verified 12/02/24 09:04 Physical Exam Vitals: Vital Signs Temp Pulse Resp BP Pulse Ox 12/02/24 10:14 57 L 20 143/86 100 12/02/24 08:48 97.3 F L 52 L 18 127/78 100 Intake and Output 12/01/24 12/02/24 12/02/24 22:59 06:59 14:59 Other: Weight 73.482 kg Results 12/02/24 09:10 12/02/24 09:10 Cardiac Enzymes 12/02/24 12/02/24 Range/Units 09:10 09:10 AST 29 (17-59) U/L Troponin I <0.012 (0.000-0.034) ng/mL Coagulation 12/02/24 Range/Units 09:10 PT 11.1 (10.0-12.5) sec APTT 20.8 L (22.0-30.0) sec CBC 12/02/24 Range/Units 09:10 WBC 8.15 (4.50-10.00) 10*3/uL RBC 4.57 (4.40-5.60) 10*6/uL Hgb 14.2 (13.0-17.0) g/dL Hct 40.5 (39.6-50.0) % Plt Count 252 (140-440) 10*3/uL Comprehensive Metabolic Panel 12/02/24 Range/Units 09:10 Sodium 138 (137-145) mmol/L Potassium 4.2 (3.5-5.1) mmol/L Chloride 107 (98-107) mmol/L Carbon Dioxide 24 (22-30) mmol/L BUN 16 (9-20) mg/dL Creatinine 0.76 (0.66-1.25) mg/dL Glucose 109 H (74-99) mg/dL Calcium 9.7 (8.4-10.2) mg/dL AST 29 (17-59) U/L ALT 22 (4-49) U/L Alkaline Phosphatase 71 (38-126) U/L Total Protein 6.8 (6.3-8.2) g/dL Albumin 4.2 (3.5-5.0) g/dL Intake and Output 12/01/24 12/02/24 12/02/24 22:59 06:59 14:59 Other: Weight 73.482 kg Patient Weight 12/03/24 06:59 Weight 73.482 kg 12/02/24 09:10 12/02/24 09:10
[2024-12-02 12:32] VITALS: BP 130/89; PULSE 74; RESP 18; TEMP 98.4
== END 2024-12-02 12:33 | disposition home or self-care (01) ==
LOC: EC 08:47
DX: R55 Syncope and collapse (principal); Z87.891 Personal history of nicotine dependence; Z79.82 Long term (current) use of aspirin
CPT/HCPCS: 36415; 71046; 80053; 84484; 85025; 85610; 85730; 93005; 96360; 99285

== ENCOUNTER → 2024-12-02 | Outpatient (CLI) | payer MEDICARE ==
[2024-12-02 08:56] LABS: African American GFR (CKD) >90 (>60 ml/min/1.73 sqM); Blood Urea Nitrogen 16 mg/dL (9-20); Non-African American GFR(CKD) >90 (>60 ml/min/1.73 sqM)
[2024-12-02 09:27] VITALS: BP 143/82; PULSE 50; RESP 16; TEMP 98
--- NOTE | 2024-12-02 14:46 | CT ---
EXAMINATION TYPE: CT abdomen pelvis w con CT DLP: 886.5 mGycm, Automated exposure control for dose reduction was used. DATE OF EXAM: 12/02/2024 11:20 AM COMPARISON: CT abdomen pelvis 06/18/2023 CLINICAL INDICATION:Male, 68 years old with history of R31.0 GROSS HEMATURIA C67.9 BLADDER CANCER; HX OF BLADDER AND PROSTATE CA. GROSS HEMATURIA. TECHNIQUE: Standard CT of the abdomen and pelvis following the administration of 100 cc of Isovue 3 00 IV contrast material and oral contrast. Coronal and sagittal reformats were performed. FINDINGS: LOWER CHEST: Right lung base calcified pleural plaque redemonstrated. Correlate for prior asbestosis exposure. Otherwise the lungs are clear. ABDOMEN LIVER: Peripheral left hepatic lobe subcentimeter hypodense focus redemonstrated which is too small a ccurately characterize but likely represents a cyst. GALLBLADDER AND BILE DUCTS: Unremarkable. PANCREAS: Unremarkable. SPLEEN: Unremarkable. ADRENAL GLANDS: Unremarkable. KIDNEYS AND URETERS: No evidence of hydronephrosis or renal calculus. The kidneys enhance symmetrical ly. Right renal exophytic lower pole 2.3 cm stable simple appearing cyst. No follow up recommended. C ontrast is demonstrated within both collecting systems and proximal ureters on the delayed phase. PELVIS BLADDER: Unremarkable. No discrete bladder wall thickening identified. Evaluation is limited due to l ack of intraluminal contrast. REPRODUCTIVE: Coarse calcifications of the prostate gland are identified. Enlarged prostate gland elis suring 5.2 cm in transverse dimension. There is median lobe hypertrophy which indents upon the urinar y bladder base. ABDOMEN & PELVIS STOMACH AND BOWEL: Stomach and duodenum are unremarkable. Enteric contrast reaches the distal transve rse colon. No focal bowel wall thickening or surrounding inflammatory changes. The appendix is within normal limits. No evidence of bowel obstruction. PERITONEUM: No evidence of pneumoperitoneum or free fluid. Incidental calcification possibly represen ting a calcified peritoneal mice within the rectovesicular space. VASCULATURE: Mild atherosclerotic calcifications are present throughout the abdominal aorta and its b ranches. No evidence of aortic aneurysm. MUSCULOSKELETAL: No acute osseous abnormalities. Moderate multilevel degenerative disc disease with e ndplate sclerosis, disc space narrowing, vacuum disc disease, and anterior osteophytosis. Grade 1 ret rolisthesis of L1 on L2, L2 on L3, and L3 on L4. LYMPH NODES: No evidence for lymphadenopathy. SOFT TISSUE/ABDOMINAL WALL: Unremarkable IMPRESSION: 1. No CT evidence for acute abdominal/pelvic process. 2. No discrete urinary bladder abnormality identified within limitations. Prostatomegaly which inden ts upon the urinary bladder base. [facility], , 12/02/2024 2:44 PM
== END | disposition home or self-care (01) ==
LOC: RADCTMAIN 07:31
PROVIDERS: ATTEND Urology
DX: C67.9 Malignant neoplasm of bladder, unspecified (principal); N40.0 Benign prostatic hyperplasia without lower urinary tract symptoms; R31.0 Gross hematuria
CPT/HCPCS: 82565; 84520; 74177; 36415; Q9967

== ENCOUNTER → 2024-12-02 | Outpatient (CLI) | payer MEDICARE ==
--- NOTE | 2024-12-02 08:43 | MR ---
EXAMINATION TYPE: MR shoulder LT wo con DATE OF EXAM: 12/02/2024 8:24 AM COMPARISON: None. CLINICAL INDICATION: Male, 68 years old with history of M19.012 PRIMARY OSTEOARTHRITIS, LEFT SHOULDER , Left shoulder pain and difficulty raising arm x2 years IV Contrast: cc (None if empty) TECHNIQUE: Multiplanar, multisequence imaging of the left shoulder is performed without contrast. FINDINGS: Rotator Cuff: Intact infraspinatus tendon. Significant increased signal, suspected full-thickness ret racted tear of the anterior one half fibers of the distal supraspinatus tendon measuring 1.3 cm trans versely coronal image 18 and 1.2 cm AP diameter sagittal image 7. Some heterogeneity of the subscapul adamaris tendon with surrounding fluid. Rotator cuff muscle bulk is preserved. Acromioclavicular Joint: Moderate to severe narrowing and spurring. Mild to moderate superior capsula r hypertrophy. Loss of underlying fat plane noted. Glenohumeral Joint: Moderate size joint effusion. Narrowing is seen greatest inferiorly. No significa nt spurring. Labrum: Increased signal superior labrum consistent with tear. Biceps Tendon: The long head of biceps is in normal location within bicipital groove. Intracapsular p ortion not well visualized. Bone marrow signal: No focal abnormal marrow signal is appreciated. Other: No additional significant abnormality is appreciated. IMPRESSION: 1. Large superior labral tear. 2. [id number] tendinosis of the subscapularis tendon. Full-thickness tear involving anterior on e half fibers of the supraspinatus tendon. 3. Moderate to severe degenerative changes are present as detailed above. Underlying impingement is s uspected. Correlate clinically. [facility], , 12/02/2024 8:40 AM
== END | disposition home or self-care (01) ==
LOC: RADMRIMAIN 07:27
PROVIDERS: ATTEND Orthopaedic Surgery
DX: M19.012 Primary osteoarthritis, left shoulder (principal); M67.814 Other specified disorders of tendon, left shoulder; M75.112 Incomplete rotator cuff tear or rupture of left shoulder, not specified as traumatic

== ENCOUNTER → 2025-01-26 | Outpatient (CLI) | payer MEDICARE ==
--- NOTE | 2025-01-26 13:21 | CTL ---
EXAMINATION TYPE: CT Low Dose Lung DATE OF EXAM ORDERED: 01/26/2025 COMPARISON: 01/26/2024 CLINICAL INDICATION: Male, 69 years old with history of Z12.2 ENCNTR SCREEN FOR MALIGNANT NEOPLASM OF RESP; PHH, Former smoker, quit x2yrs. Hx of 1PPD x40yrs., Lung cancer screening, History of Smoking/ tobacco use. TECHNIQUE: Low dose computed tomography scan was performed through the chest at 1 mm thick sections a nd reconstructed images in multiple planes at 1 mm and [address] DLP: 90.[address] CTDI: 2.4 mGy Automated exposure control for dose reduction was used. CT DIAGNOSTIC QUALITY: Satisfactory Findings: There are no new or suspicious lung masses or nodules. There is no lung consolidation or abnormal interstitial density. There is no pleural effusion or pneumothorax. There is stable dense pleural calcification overlying t he right hemidiaphragm. The great vessels and heart are normal in size. There is no mediastinal, hilar or axillary adenopathy. Limited scanning through the upper abdomen reveals no gross abnormality. There are no focal osseous lesions. IMPRESSION: 1. Lung RADS category 1 negative. Continue routine screening at yearly intervals. 2. No acute cardio pulmonary disease. [facility], , 01/26/2025 1:18 PM
== END | disposition home or self-care (01) ==
LOC: RADCTMAIN 12:41
PROVIDERS: ATTEND Internal Medicine Critical Care Medicine
DX: Z12.2 Encounter for screening for malignant neoplasm of respiratory organs (principal); Z87.891 Personal history of nicotine dependence
CPT/HCPCS: 71271